=== PATIENT | female | born 1955 | race Caucasian/White ===

== ENCOUNTER 2020-02-24 11:12 | Outpatient (CLI) | payer BC, SELFPAY ==
[2020-02-24 11:34] VITALS: BMI 34.2
--- NOTE | 2020-02-24 11:43 | ECG_ITS ---
NAME OF STUDY: TREADMILL STRESS ECHOCARDIOGRAM INDICATION: Chest Pain Baseline blood pressure of 186/66 mm Hg, heart rate 57 beats per minute and oxygen saturation 97%. EKG showed normal sinus rhythm, normal axis with intraventricular conduction delay. Nonspecific ST-T wave changes in inferolateral leads. The patient exercised for 2 minutes 52 seconds on a standard Yousuf protocol. Patient attained a maximum heart rate of 117 beats per minute(74 % of the maximum predicted heart rate) with a blood pressure at the peak exercise of 249/119 mm Hg and oxygen saturation of 98%. The EKG at the peak exercise revealed sinus tachycardia with horizontal to upsloping 1 and half millimeter-2 mm horizontal to upsloping ST depression in inferolateral leads. Patient did not have any chest pain or any significant arrhythmias with the exercise Test terminated without reaching target heart rate due to patient fatigue and hypertension. No echocardiographic images due to incomplete test. During the recovery phase, there were no new changes. Frequent PVCs in bigeminal pattern were noted in recovery. Blood pressure at the end of the recovery phase was 143/100 mm Hg with a heart rate of 55 beats per minute and oxygen saturation 96%. CONCLUSION: 1. Equivocal EKG response to treadmill exercise given baseline ST-T wave changes. Test terminated without reaching target heart rate due to patient fatigue and hypertension. 2. No exercise-induced chest pain. Frequent PVCs in bigeminal and trigeminal pattern noted in recovery. 3. Poor exercise tolerance, attained a maximum of 4.6 METs. 4. Baseline hypertension with hypertensive response to exercise. 5. Echocardiographic images were not performed as patient did not reach target heart rate. Better blood pressure control along with chemical stress testing is recommended. Electronically Signed On 02-26-2020 15:44:49 CDT by Krystal Garcia M.D. [id number]
[2020-02-24 12:18] VITALS: BP 143/100; PULSE 54
--- NOTE | 2020-02-24 12:23 | PC.NURSE ---
Stress test Pt attempted stress echo. Unable to reach target HR on treadmill d/t fatigue, pt requested treadmill to be stopped. Pt experienced frequent PVC's, bigeminal rhythm with along with htn during activity, BP reaching 240's/100's. EKG normalized with rest along with BP. Pt discharged home and PCP notified of incomplete test along with results.
== END 2020-02-24 11:13 | disposition home or self-care (01) ==
LOC: CDL 11:19
PROVIDERS: PCP Family Medicine; Visit Provider Family Medicine
DX: I10 Essential (primary) hypertension (principal); R94.31 Abnormal electrocardiogram [ECG] [EKG]; R07.9 Chest pain, unspecified
CPT/HCPCS: 93017

== ENCOUNTER 2020-04-19 09:30 | Outpatient (CLI) | payer BC, SELFPAY ==
[2020-04-19 10:03] VITALS: BMI 34.2
--- NOTE | 2020-04-19 10:08 | ECG_ITS ---
[facility] Test Date: 2020-04-19 Pat Name: Manisha Delong Department: Room: Gender: Female Soap Boiler: : 1955 Requested By: Mike Doshi Order Number: [id number] Alea MD: Mike Doshi M.D. Interpretive Statements NAME OF STUDY: LEXISCAN SESTAMIBI STRESS TEST INDICATION: Bigeminal Rhythm NOTE: Please note that this is the electrocardiogram portion of the Lexiscan/Sestamibi stress test. The perfusion scan will be documented separately. DATA: Baseline heart rate was 58 beats per minute. Baseline blood pressure was 203/112 millimeters of mercury. Target heart rate was 158. Maximum heart rate achieved was 100. which was 63 % of the predicted target heart rate. Maximum blood pressure was 268/135 millimeters of mercury. The reason for ending the test was completion of the protocol. The patient did not experience any symptoms. ELECTROCARDIOGRAM: BASELINE: Sinus bradycardia. Normal axis. Interventricular conduction delay, otherwise no ST-T changes suggestive of ischemia noted. No arrhythmia noted. EXERCISE: After Lexiscan injection, no ST-T changes suggestive of ischemic noted. No arrhythmia noted. CONCLUSION: Please note due to baseline abnormality of the EKG specificity and sensitivity of the EKG portion of LexiScan MIBI stress test will be low 1. EKG not suggestive of ischemia 2. Lexiscan injection unremarkable. 3. Perfusion scan will be documented separately. Electronically Signed On 04-21-2020 17:10:51 CDT by Mike Doshi M.D. [id number]
--- NOTE | 2020-04-19 10:10 | NMCV_ITS ---
NM fede perf SPECT r/s* [id number] Manisha Delong Age: 64 Gender: F : 1955 Exam Date: 04/19/2020 10:20 Ordering Phys: Technologist: SANIYA Mora Exam Location: [facility] Indications: Precordial chest pain STRESS TEST Please see separate stress test report in Ephiphany for full findings IMAGE PROTOCOL Rest/Stress 1 Lexiscan Day Radiopharmaceutical Dose (mCi) Administration Site Administered by Rest: Tc-99m 10.7 IV SANIYA Jordan Sestamibi Stress:Tc-99m 32.9 IV SANIYA Mora Sestamimarylin Rest: 19-Apr-2020 60 Discovery 630 Stress: 19-Apr-2020 45 Discovery 630 0.4mg Lexiscan supine position only as patient was unable to lay prone. SPECT RESULTS Technical Quality: Good Raw Data Analysis: Breast attenuation, Soft tissue attenuation Image Corrections: No attenuation or motion correction applied Summed Stress Score: 15 Summed Rest Score: 8 Summed Difference Score: 9 PERFUSION FINDINGS Medium-sized area of fixed perfusion defect noted in basal to mid inferior inferolateral wall surrounded by medium-sized area of severe reversibility suggestive of old myocardial infarction surrounded by medium-sized area of liborio-infarct ischemia in left circumflex territory FUNCTIONAL RESULTS (calculated via Gated SPECT) Stress Image LV EF (%): 59 Stress EDV (mL):120 TID: 0.71 Stress ESV (mL):49 Rest Image LV EF (%): 59 FUNCTIONAL FINDINGS: Basal to distal inferior inferolateral wall hypokinesis IMPRESSIONS Medium-sized area of fixed perfusion defect noted in basal to mid inferior inferolateral wall surrounded by medium-sized area of severe reversibility suggestive of old myocardial infarction surrounded by medium-sized area of liborio-infarct ischemia in left circumflex territory Mike Doshi MD (Electronically Signed) Final Date: 20 April 2020 15:38 S
[2020-04-19] MEDS: regadenoson 0.4 Mg/5 ml Syringe IVP (11:24)
--- NOTE | 2020-04-19 11:24 | SUR.PREOP ---
Patient reports no pain or discomfort prior to the start of the procedure.
[2020-04-19] MEDS: aminophylline 25 mg/mL SDV 10 mL IVP (11:39)
[2020-04-19] MEDS: hyDRALAzine 20 mg/mL INJ 1 mL 10 MG IVP (11:48)
[2020-04-19] MEDS: nitroglycerin 1 gm/inch oint Pkt 1 INCH TOPICAL (11:50)
--- NOTE | 2020-04-19 12:02 | SUR.PHASEII ---
b/p elevation Blood pressure elevated during stress and early recovery phase of the testing. Highest on record 268/123. Patient experiencing dry heaves and vomiting during early phase which contributed to bp response. Stress reversed with Aminophylline, but remained elevated despite symptoms going away. Dr Doshi made aware. Orders as per EHR. Noted and completed at this time. Late recovery Patient stable. HR 82. b/p currenly 173/96 after medication orders. Will recheck. Patient set in the WR at this time. Will reassess bp and HR prior to discharge from [place]. NM aware.
[2020-04-19 12:11] VITALS: BP 173/96; PULSE 82
[2020-04-19 12:51] VITALS: BP 135/67; PULSE 67; RESP 18; O2SAT 97
--- NOTE | 2020-04-19 12:51 | SUR.PHASEII ---
B/P recheck post NM scans and post med admins is 135/67. Asymptomatic at this time. Dr Doshi notified. Verbal orders to dismiss home at this time.
== END 2020-04-19 09:31 | disposition home or self-care (01) ==
LOC: CDL 09:32
PROVIDERS: PCP Family Medicine; Visit Provider Internal Medicine Cardiovascular Disease
DX: I49.9 Cardiac arrhythmia, unspecified (principal); R07.2 Precordial pain
CPT/HCPCS: 78452; 93017; 96374; A9500; J0280; J0360; J2785

== ENCOUNTER → 2020-05-03 10:43 | Outpatient (BNVA) | payer BC, SELFPAY | PROVIDERS: PCP Family Medicine; Visit Provider Internal Medicine Cardiovascular Disease | DX: R94.39 Abnormal result of other cardiovascular function study (principal); R07.2 Precordial pain | CPT/HCPCS: 80048; 85025; 87635 ==

== ENCOUNTER 2020-05-11 08:27 | Observation (INO) | payer BC, SELFPAY ==
[2020-05-11] VITALS (27 sets, daily range): BP systolic 108–196; BP diastolic 58–93; PULSE 50–73; RESP 13–23; TEMP 36.7; O2SAT 92–96; BMI 34.2
[2020-05-11] MEDS: diphenhydrAMINE 50 mg Capsule PO (07:52)
--- NOTE | 2020-05-11 08:30 | XACV_ITS ---
Exam Room: [facility] Ht: 165 cm Wt: 93 kg BSA: 2.11 m2 Gender: Female : 1955 Any Known Allergies: No known allergies Exam Priority: Routine Procedure(s): Procedure Description: Diagnostic procedure Procedure Description: Left ventriculography Procedure Description: Coronary Angiography Diagnostic Cath Status: Elective Diagnostic Findings LM has 0% stenosis. LAD has 0% stenosis. dCIRC: Severe 100% stenosis, HUI: 3 flow. mRCA to dRCA: Severe 80% stenosis, HUI: 2 flow. dRCA to RPAV: Severe 100% stenosis, HUI: 0 flow. dLAD to dLAD collateralization. Coronary angiography shows right dominance. Conclusions There is severe coronary artery disease with two vessel disease. The basal posterior and inferobasal ohara are hypokinetic. Normal left ventricular systolic function. Ejection fraction of 55%. 1. Left main is normal2. LAD has luminal irregularity with moderate size and caliber large vessel. Diagonal-1, diagonal 2 are small to moderate sized vessel without significant stenosis3. Left circumflex artery is nondominant small size and caliber vessel with probable distal groove circumflex occluded chronically4. RCA is subtotally and completely occluded in mid to distal segment, LAD collateral to distal RCA fills it retrogradely. Recommendations 1-Return to inpatient for close monitoring and routine cath care 2-Risk factor modification for secondary prevention 3-Statin and aspirin 81 mg life--long, if tolerated 4-Continue optimal medical management 5-Follow up with Dr. Doshi in four weeks and your primary care in 10 days . Diagnostic RX Recommendation: medical therapy and/or counseling Ventriculography Ejection Fraction: 55.0 % Left Ventriculography Findings: Normal left ventricular ejection fraction with inferior wall motion abnormality estimated ejection fraction 55%. Pressures Phase:Rest AO : 100 mmHg / 57 mmHg ( 73 mmHg ) @ 4:52:00 AM 104 mmHg / 52 mmHg ( 73 mmHg ) @ 4:53:00 AM 107 mmHg / 57 mmHg ( 77 mmHg ) @ 4:57:00 AM 125 mmHg / 51 mmHg ( 75 mmHg ) @ 5:09:00 AM 120 mmHg / 50 mmHg ( 75 mmHg ) @ 5:09:00 AM LV : 103 mmHg / 7 mmHg / @ 5:07:00 AM 132 mmHg / -1 mmHg / @ 5:09:00 AM 125 mmHg / -1 mmHg / @ 5:09:00 AM Valves Phase:DefaultPhase AV : 0.0 mmHg @ 1:26:39 PM AV Mean Gradient: 0.0 mmHg @ 1:26:39 PM Clinical Evaluation EBL: 5mL-10mL Procedural Details Procedure Consent Obtained. Pre-Procedure Time Out. Identified patient by full name and date of as verbalized by the patient/guarantor. Does the consent match the physician's order: Yes. Accurate & Complete Informed Consent: Yes. Inpatient/Outpatient History & Physical on Chart: Yes. If H&P is completed, is and addenduem needed: No; If yes, is the addendum complete: N/A. Visualize and Verify Site with Patient/Guarantor: N/A. Relevant Radiology Images available: Yes. Pre-op teaching completed and patient verbalized understanding. The risks, benefits, and alternatives of sedation and/or procedure were discussed by physician. The patient agrees to continue. Procedure started. Correct patient, site and procedure confirmed by cath team. Current diagnosis: Chest Pain. PERRLA. Strong, equal hand technical advisor bilaterally. Lungs clear x 5 lobes. IV Site on Arrival: 20 gauge in the left anticubital. IV Fluids: 0.9% NaCl at KVO. 0 mL infused prior to labor relations officer. Pre Procedural Pulses: bilateral dorsalis pedis was 1+. Pre Procedural Pulses: bilateral posterior tibial was 1+. Pre Procedural Pulses: bilateral radial was 3+. Oxygen started at 2liters/min via nasal canula. bilateral groins was prepped with chloroprep then draped in the usual sterile fashion. right radial was prepped with chloroprep then draped in the usual sterile fashion. Physician notified. Baseline sample Acquired. HR: 55 BPM. Physician arrived. Equipment: 6F - Radial. ACIST Manifold Kit Model BT 2000. Cardiac Cath Pack. Heparinized Saline (2 units/mL), 1000 mL bag. Physician scrubbed in. Immediate Pre-Procedure Time Out. Correct Patient: Yes; Correct Procedure: Yes; Correct Site: Yes; Correct Patient Position: Yes; Correct Supplies: Yes; Dried Flammable Prep: Yes; Blood Products Available: No;. Lidocaine 1% infiltrated to the right radial. Arterial access obtained. A 5 grenadian TIG catheter in over wire. Hand injection performed. Glidewire inserted. Glidewire out. 5FR TIG catheter removed. TR band placed. Hemostasis obtained. A TR Band was successful obtaining hemostatsis at the Right Radial artery insertion site. Radial site aborted, Physician will obtain access in Groin. Lidocaine 1% infiltrated to the right groin. Og Johnston called with update. Arterial access obtained with micropuncture set. A 5 grenadian JL4 catheter in over wire. Multiple views taken of left coronary artery. Catheter removed over the standard wire. A 5 grenadian JR4 catheter in over wire. Multiple views taken of right coronary artery. Catheter out. A 6 grenadian Angled Pig catheter in over wire. EDP Sample taken: LV 103/7,9; HR: 57 BPM; SpO2: 96%. LV gram performed in [place] @ 10 mL/second for a total of 30 mL. EDP Sample taken: LV 132/-2,6; HR: 49 BPM; SpO2: 97%. Pullback taken: LV 125/-2,7; AO 125/51(75); Mean: 0mmHg, Peak to Peak: 0mmHg, SEP: 5sec/min; HR: 57 BPM; SpO2: 96%. Physician scrubbed out. Sheath(s) sutured into position with 2-0 silk and sterile 4x4's and Op-site applied over the site. No oozing or signs and symptoms of hematoma noted. Arterial sheath flushed and connected to tranducer and pressure bag with heparinized saline. A Suture was successful obtaining hemostatsis at the Right Femoral artery insertion site. Post Procedure: Pulses reassessed and unchanged. PERRLA. Strong, equal hand technical advisor bilaterally. No VTE prophylaxis required. Medication's Wasted: Nitro = 45.5 mg. Medication's Wasted: Other = Versed 1 mg. Medication's Wasted: Heparin = 1000 units. Medication's Wasted: Lidocaine 1% = 6 mL. Total IV fluids: 73 mL. Vital chart was stopped. Contrast type used: Omnipaque 300 mgI/mL, 500 mL bottle. [id number]. Post-op diagnosis: Chest Pain. Complications: None. Estimated blood loss: 5mL-10mL. Procedure completed. Patient transferred by bed to 1st floor. [facility] Clinical Fraility Score: 3: Managing Well. Kettle Room Helper Indications: Worsening Angina. Chest Pain Symptom Assessment: Typical Angina Symptoms. Cardiovascular Instability: No. Site: Right Radial artery Sheath Size: 6 Fr Hemostasis Method: TR Band Hemostasis Success: Successful Site: Right Femoral artery Sheath Size: 6 Fr Hemostasis Method: Suture Hemostasis Success: Successful Procedure Medications Start: 9:09 AM Stop: 9:09 AM Medication: Versed Amount: 1 mg Route: I.V. Start: 9:09 AM Stop: 9:09 AM Medication: Fentanyl Amount: 50 mcg Route: I.V. Start: 9:14 AM Stop: 9:14 AM Medication: Versed Amount: 1 mg Route: I.V. Start: 9:14 AM Stop: 9:14 AM Medication: Fentanyl Amount: 50 mcg Route: I.V. Start: 9:17 AM Stop: 9:17 AM Medication: Nitrogylcerin Amount: 50 mcg Start: 9:21 AM Stop: 9:21 AM Medication: Nitrogylcerin Amount: 200 mcg Route: I.A. Start: 9:22 AM Stop: 9: AM Medication: Versed Amount: 1 mg Route: I.V. Start: 9:27 AM Stop: 9:27 AM Medication: Nitrogylcerin Amount: 400 mcg Route: I.A. Start: 9:43 AM Stop: 9:43 AM Medication: Versed Amount: 1 mg Route: I.V. Start: 9:58 AM Stop: 9:58 AM Medication: Versed Amount: 1 mg Route: I.V. I, the attending physician, have reviewed and verified all procedure medications. Yes, all medications given per verbal order History/Risk Factors Hypertension: Yes Dyslipidemia: No Peripheral Arterial Disease (PAD): No Myocardial Infarction (FL): No Obesity: No Renal Disease: No Tobacco Use: Former Prior Interventions PCI: No CABG: No Valve Surgery: No Report Signatures Finalized by:Mike Doshi MD on 05/29/2020 3:59:03 PM
--- NOTE | 2020-05-11 08:59 | PM.HP ---
Providers/Chief Complaint Admitting Physician: Mike Doshi MD Primary Care Provider: Ck Lazaro MD Chief Complaint: chest pain abnormal stess test History of Present Illness 64-year-old female past medical history significant for family history of coronary artery disease, history of smoking hypertension hyperlipidemia for worsening of chest pain and shortness of breath thought to be anginal-like symptoms underwent treadmill stress test because of very high systolic blood pressure and inability to complete exercise stress test due to frequent and bigeminal ventricular rhythm test was aborted. Later patient underwent Lexiscan MIBI stress test which showed medium-sized area of fixed perfusion defect noted in basal to mid inferior inferolateral wall surrounded by medium-sized area of severe reversibility suggestive of MO surrounded by medium-sized area of liborio-infarct ischemia in the dominant RCA or circumflex territory. It is the reason patient is here for left heart cath and PCI if indicated. Patient has been explained all risk benefit and alternative for the procedure. She understand the risk of stroke TIA bleeding emergent cardiac bypass. She would like to proceed with it. Medications/Allergies Home Medications Medication Instructions Recorded Confirmed Last Taken Type hydrochlorothiazide 25 mg tablet 25 mg PO DAILY 03/29/20 05/10/20 05/11/20 06:20 History lisinopril 40 mg tablet 40 mg PO DAILY 03/29/20 05/10/20 05/11/20 06:20 History metoprolol succinate 25 mg 25 mg PO DAILY 03/29/20 05/10/20 05/11/20 06:20 History tablet,extended release 24 hr isosorbide mononitrate 30 mg 15 mg PO BID #90 tab 04/04/20 05/10/20 05/11/20 06:20 Rx tablet,extended release 24 hr Allergies Allergy/AdvReac Type Severity Reaction Status Date / Time No Known Allergies Allergy Verified 05/11/20 08:13 PFSH Acute PFSH: Medical History Bigeminal rhythm Chest pain HTN (hypertension) Family History Father CAD (coronary artery disease) Diabetes Hyperlipidemia Mother CAD (coronary artery disease) Grandmother Cancer Sister Hypertension Denies family history of Clotting disorder Dementia Psychiatric illness Chronic kidney disease (CKD) Suicide Anesthesia complication Bleeding disorder Family history of premature coronary artery disease Lung disease Stroke Social History Smoking and tobacco status: former smoker Alcohol intake: never Vitals/I&O/Wt Last Vital Signs Temp 98.0 F 05/11/20 08:11 Pulse 62 05/11/20 08:11 Resp 14 05/11/20 08:11 BP 196/73 05/11/20 08:11 Weight last 48 hrs Weight 206 lb Physical Exam Narrative: EXAM NARRATIVE: GENERAL: Patient is alert, awake and oriented x3. NECK: No jugular vein distension. HEENT: No cyanosis. No icterus. No pallor. HEART: Regular S1 and S2. No murmur, rub or gallop. LUNGS: Clear to auscultate bilaterally. ABDOMEN: Soft, nontender and nondistended. Positive bowel sounds. No guarding, rebound or tenderness. CENTRAL NERVOUS SYSTEM: Grossly nonfocal. EXTREMITIES: Lower extremities without edema bilaterally. A&P Assessment and plan (1) Abnormal stress test: Patient is here for left heart cath with history of worsening of angina, arrhythmia and abnormal stress test. She understand all risk benefit and alternative for the procedure explained by myself. She would like to proceed with it. Status: Acute (2) HTN (hypertension): Patient is hypertensive I will give her IV hydralazine and hopefully with analgesia blood pressure will be under control otherwise we can use nitro drip. Status: Acute Qualifiers: Hypertension type: essential hypertension Qualified Code(s): I10 - Essential (primary) hypertension (3) Bigeminal rhythm: We will rule out ischemia with left heart cath. Further plan will be advised as per progress the patient Status: Acute Attestations Medical Necessity Statement*: I am not expecting her stay to cross more than 1 midnight. Coding Level of Care Code Established Pt Acute Nitric Acid Concentrator Operator for Chg Fwd Patient Type Established History Expanded Problem Focused Exam Expanded Problem Focused Medical Decision Making Moderate Complexity Diagnoses Abnormal stress test R94.39 HTN (hypertension) I10 Hypertension type: essential hypertension Bigeminal rhythm I49.9
--- NOTE | 2020-05-11 09:05 | W.PM.OPSUD ---
Surgery/Procedure H&P Update DATE OF PROCEDURE: May 11, 2020 DATE H&P PERFORMED: 05/11/20 H&P UPDATE INFORMATION: I have examined patient prior to procedure, No changes to prior documentation and H&P to be scanned into chart PREOP DIAGNOSIS: Angina/abnormal stress test/arrhythmia PLANNED PROCEDURE: Operation Date: 05/11/20 08:30 Proposed Procedures p Cardiac Catheterization left(Left) - Mike Doshi MD PATIENT REASSESSED PRIOR TO SEDATION, WITH NO CHANGE NOTED: Yes PHYSICAL EXAM: alert, oriented x 3 and clear to auscultation bilaterally AIRWAY EVAL/ANESTHESIA PLAN: normal airway, ASA II, Risks, benefits & alternatives of sedation and/or procedure discussed and Patient agrees to continue as planned
--- NOTE | 2020-05-11 10:45 | PC.NURSE ---
Patient arrived to floor from orthodontic lab technician at 1028. 2 nurse verification of right wrist and groin. Sites asymptomatic. TR band applied to wrist with 19 ml of air instilled. 3 ml of air removed upon arriving to the floor. No oozing noted. Pressure bag to right groin. neurovascular assessments WNL. Patient A&O resting in bed. Patient oriented to room and call light. Patient educated on activity restrictions.
[2020-05-11] MEDS: sodium chloride 0.9% 1,000 ML 100 ML IV (10:46)
--- NOTE | 2020-05-11 10:59 | PC.CHAP ---
Pastoral Care Encounter/Spiritual Assessment Type of Contact [] Declined supervisor microwave visit [] Patient/Family/Request visit [] Outpatient visit [] Follow-up visit [] Physician referral [] Code/Alert [x] Routine visit [] Staff referral [] Actively dying [] Patient sleeping [] Family support [] [] Out of room [] Palliative care [] [] Receiving care in room [] Pre-surgical visit [] Trauma [] Long length of stay [] ICU visit [] Other: Relational/Emotional Strength [] Patient feels connected with others/family/visitors/staff [] Distress [] Loneliness/isolation [] Abandonment Spirituality of Patient [] Person of Treva [] Attends Mosque of their Treva [] Believes in Prayer [] Reads Bible or Cheondoism materials [] There are Spiritual issues to be addressed Cupboard Builder Interventions [x] Prayer [x] Active listening [x] Non-anxious presence [x] Spiritual/emotional support [] Crisis/trauma care [] Spiritual counseling [] Bereavement support [] Provided bereavement packet [] Provided Bible/devotional materials [] Provided toy/stuffed animal, coloring book to patient or family member [] Provided Communion [] Anointing/[place] [] Salvation [x] Completed spiritual assessment [] Other: Impact on Illness or Injury [] Angry [] Fearful [] Anxious [] Often cries [] Exhaustion [] Unable to work [] Unable to attend judaism [] Unable to walk/stand [] Unable to read [] Unable to drive [] Unable to eat/drink [] Unable to sleep [] Unable to be with family [] Patient intubated [] Other: Summary Patient just brought to room- resting well Time spent with patient 5 min
--- NOTE | 2020-05-11 11:45 | PC.NURSE ---
Sheath pulled Sheath pulled at 1122 per protocol. Direct pressure held for 20 minutes until hemostasis was achieved. Patient tolerated well. No hematoma noted. Dressing applied, CDI. Nurse to continue to monitor.
[2020-05-11 12:51] LABS: Partial Thromboplastin Time 28.3 SECONDS (23.9-36.7)
--- NOTE | 2020-05-11 13:30 | PC.NURSE ---
TR Band Removal Nurse called to bedside by nurse's aide. Patient had removed TR Band by herself with 13 ml of air remaining. Site had already achieved hemostasis. Site cleansed, dressing applied. No hematoma or oozing noted. Patient re-educated on the purpose of the TR band and the complications that could have resulted from the patient taking the band off herself. Dr. Doshi notified of event. No new orders received. Nurse to continue to monitor.
[2020-05-11] MEDS: isosorbide mononitrate ER 30 mg Tablet 15 MG PO (17:12)
--- NOTE | 2020-05-11 18:45 | PC.NURSE ---
Discharge instructions given per the physician's orders. Patient verbalized understanding of post angiogram care instructions and medication informations. Patient did not have any further questions. IV has been removed. Patient dressed self. Patient's granddaughter is driving the patient home in a private vehicle. No further needs identified.
--- NOTE | 2020-05-13 16:48 | PC.RESP ---
PATIENT DOES NOT HAVE A QUALIFYING HX OF LUNG DISEASE AT THIS TIME AND DOES NOT QUALIFY FOR PULMONARY REHAB.
== END 2020-05-11 18:48 | disposition home or self-care (01) ==
LOC: CSU 08:28
PROVIDERS: Admitting Provider Internal Medicine Cardiovascular Disease; PCP Family Medicine; Visit Provider Internal Medicine Cardiovascular Disease
DX: I25.10 Atherosclerotic heart disease of native coronary artery without angina pectoris (principal); R94.39 Abnormal result of other cardiovascular function study; I10 Essential (primary) hypertension; I49.9 Cardiac arrhythmia, unspecified; Z82.49 Family history of ischemic heart disease and other diseases of the circulatory system; Z87.891 Personal history of nicotine dependence; E78.5 Hyperlipidemia, unspecified
CPT/HCPCS: 12345; 36415; 85730; 93452; 96360; 96361; C1769; C1887; C1894; G0378; J1644; J2250; J3010; J3490; J7030; Q0163; Q9967

== ENCOUNTER → 2020-05-23 12:05 | Outpatient (BNVA) | payer BC, SELFPAY | PROVIDERS: PCP Family Medicine; Visit Provider Nurse Practitioner Family | DX: R07.2 Precordial pain (principal) | CPT/HCPCS: 80048 ==

== ENCOUNTER → 2022-07-24 15:11 | Outpatient (BNVA) | payer MEDICARE, SELFPAY | PROVIDERS: PCP Family Medicine; Visit Provider Internal Medicine Cardiovascular Disease | DX: I25.118 Atherosclerotic heart disease of native coronary artery with other forms of angina pectoris (principal); I10 Essential (primary) hypertension; E11.9 Type 2 diabetes mellitus without complications; Z79.84 Long term (current) use of oral hypoglycemic drugs; Z87.891 Personal history of nicotine dependence | CPT/HCPCS: 99214 ==

== ENCOUNTER 2022-07-31 14:20 | Oncology outpatient (recurring) (ONCR) | payer MEDICARE, SELFPAY ==
[2022-07-31 16:21] LABS: Basophils # 0.1 10^3/uL (0.0-0.1); Basophils % 0.7 %; Eosinophils # 0.2 10^3/uL (0.0-0.8); Eosinophils % 3.2 %; Hemoglobin 12.3 g/dL (11.5-15.3); Lymphocytes # 1.2 10^3/uL (0.8-4.8); Lymphocytes % 16.4 %; Mean Corpuscular HGB Conc 33.2 g/dL (30.0-36.0); Mean Corpuscular Hemoglobin 32.5 pg (28.0-34.0); Mean Corpuscular Volume 97.6 fl (81-99); Monocytes # 0.7 10^3/uL (0.2-0.9); Monocytes % 9.6 %; Neutrophils # 5.16 10^3/uL (1.8-7.7); Neutrophils % 69.8 %; Nucleated Red Blood Cells % 0 %; Platelet Count 305 10^3/cmm (130-400); Red Blood Count 3.79 10^6/uL (4.1-5.3); Red Cell Distribution Width 13.4 % (12.1-15.1); White Blood Count 7.4 10^3/uL (4.0-10.0)
[2022-07-31 16:24] LABS: LAB Peripheral Smear Sent for Review
[2022-07-31 16:38] LABS: Albumin Level 4.1 g/dL (3.5-5.2); Alkaline Phosphatase 63 U/L (35-105); Anion Gap 15.3 (5-19); Aspartate Amino Transferase 40 U/L (0-32); Blood Urea Nitrogen 21 mg/dL (8-23); Calcium 9.8 mg/dL (8.5-10.5); Carbon Dioxide 27 mmol/L (22-29); Chloride 98 mmol/L (98-107); Globulin 3.2 g/dL (1.3-4.6); Glomerular Filtration Rate 45.1 mL/min (90-130); Glucose 95 mg/dL (65-115); Lactate Dehydrogenase 179 U/L (135-214); Osmolality Calculated 285 mOsm/kg (285-295); Potassium 4.3 mmol/L (3.5-5.1); Sodium 136 mmol/L (136-145); Total Bilirubin 0.5 mg/dL (0.15-1.2); Total Protein 7.3 g/dL (6.6-8.7)
[2022-07-31 16:49] LABS: Alanine Aminotransferase 31 U/L (0-33)
== END 2022-08-20 23:59 | disposition home or self-care (01) ==
PROVIDERS: PCP Family Medicine; Visit Provider Internal Medicine Medical Oncology
DX: D64.9 Anemia, unspecified (principal)
CPT/HCPCS: 80053; 83615; 85025

== ENCOUNTER 2022-08-17 14:09 | Outpatient (CLI) | payer MEDICARE, SELFPAY ==
[2022-08-17] MEDS: iohexol 350 mg/mL 100 mL Btl IV (14:40)
[2022-08-17] MEDS: iohexol 350 mg/mL 100 mL Btl PO (14:41)
--- NOTE | 2022-08-17 15:30 | CT_ITS ---
WS: [id number] CT CHEST, ABDOMEN AND PELVIS WITH CONTRAST HISTORY: elevated liver enzymes, shortness of breath, anemia TECHNIQUE: Contiguous 5 mm axial imaging performed through the chest, abdomen and pelvis with IV cont rast, oral contrast has been provided. Coronal and sagittal reformats chest. Coronal and sagittal ref ormats through the abdomen and pelvis. All CT scans at [facility] use at least one of these d ose optimization techniques: automated exposure control; mA and/or kV adjustment per patient size (in cludes targeted exams where dose is matched to clinical indication); or iterative reconstruction. CONTRAST: Omnipaque 350; 95 mL IV. DLP: 1718.73 mGy.cm COMPARISON: None available. Chest CT: No pulmonary mass or nodule. Lungs are well-aerated. Mild atherosclerosis aorta. Normal siz e pulmonary artery. No pericardial or pleural effusion. Small hiatal hernia. No adenopathy. Calcifica tion at the origin of the great vessels. No axillary adenopathy. Chest wall is negative. Abdomen CT: Mild hepatomegaly. No liver lesions. Portal vein is normally enhancing. Prior cholecystec junior. Normal spleen and pancreas. No adrenal mass. Mild atherosclerosis aorta. Mild plaque in the pro ximal great vessels and renal arteries. Renal mass and no obstruction. Too small to characterize hy podensity lower pole RIGHT kidney. Stomach is well distended with oral contrast. No small bowel obstruction. Mild diffuse fecal retentio n. No obstructing lesion. No free fluid or adenopathy. Pelvic CT: Uterus is retroverted. No free fluid or adenopathy. Mild curvature lumbar spine to the LEFT. Thoracolumbar scoliosis. CT/CT chest abd pel w con* IMPRESSION: 1. Mild hepatomegaly with no liver lesions or bile duct dilatation. 2. Normal size spleen. 3. No metastatic nodules within the lungs and no adenopathy. 4. Atherosclerosis aorta. 5. Prior cholecystectomy. 6. No GI tract obstruction.
== END 2022-08-17 14:10 | disposition home or self-care (01) ==
LOC: RAD 14:09
PROVIDERS: PCP Family Medicine; Visit Provider Internal Medicine Medical Oncology
DX: R06.02 Shortness of breath (principal); R74.8 Abnormal levels of other serum enzymes; R16.0 Hepatomegaly, not elsewhere classified; D64.9 Anemia, unspecified; I70.0 Atherosclerosis of aorta; Z90.49 Acquired absence of other specified parts of digestive tract
CPT/HCPCS: 71260; 74177

== ENCOUNTER → 2023-01-29 14:22 | Outpatient (BNVA) | payer MEDICARE, SELFPAY | PROVIDERS: PCP Family Medicine; Visit Provider Nurse Practitioner Family | DX: I25.118 Atherosclerotic heart disease of native coronary artery with other forms of angina pectoris (principal); I10 Essential (primary) hypertension; Z87.891 Personal history of nicotine dependence; Z79.82 Long term (current) use of aspirin | CPT/HCPCS: 99214 ==

== ENCOUNTER → 2023-07-30 13:33 | Outpatient (BNVA) | payer MEDICARE, SELFPAY | PROVIDERS: PCP Family Medicine; Visit Provider Internal Medicine Cardiovascular Disease | DX: I25.118 Atherosclerotic heart disease of native coronary artery with other forms of angina pectoris (principal); I10 Essential (primary) hypertension; Z87.891 Personal history of nicotine dependence; E11.9 Type 2 diabetes mellitus without complications; Z79.84 Long term (current) use of oral hypoglycemic drugs | CPT/HCPCS: 99214 ==

== ENCOUNTER → 2024-02-04 10:59 | Outpatient (BNVA) | payer MEDICARE, SELFPAY | PROVIDERS: PCP Family Medicine; Visit Provider Nurse Practitioner Family | DX: I25.118 Atherosclerotic heart disease of native coronary artery with other forms of angina pectoris (principal); I10 Essential (primary) hypertension; Z87.891 Personal history of nicotine dependence | CPT/HCPCS: 99214 ==

== ENCOUNTER → 2024-07-07 10:17 | Outpatient (BNVA) | payer MEDICARE, SELFPAY | PROVIDERS: PCP Family Medicine; Visit Provider Internal Medicine | DX: I25.118 Atherosclerotic heart disease of native coronary artery with other forms of angina pectoris (principal); I10 Essential (primary) hypertension; E11.9 Type 2 diabetes mellitus without complications; E66.9 Obesity, unspecified; Z68.30 Body mass index [BMI] 30.0-30.9, adult; Z87.891 Personal history of nicotine dependence | CPT/HCPCS: 99214 ==

== ENCOUNTER → 2025-05-04 15:09 | Outpatient (BNVA) | payer MEDICARE, SELFPAY | PROVIDERS: PCP Family Medicine; Visit Provider Internal Medicine | DX: R06.02 Shortness of breath (principal); I25.10 Atherosclerotic heart disease of native coronary artery without angina pectoris; I10 Essential (primary) hypertension; E11.9 Type 2 diabetes mellitus without complications; Z79.84 Long term (current) use of oral hypoglycemic drugs; E66.9 Obesity, unspecified; Z68.38 Body mass index [BMI] 38.0-38.9, adult; Z79.82 Long term (current) use of aspirin; Z87.891 Personal history of nicotine dependence | CPT/HCPCS: 99214 ==

== ENCOUNTER 2025-06-04 12:34 | Outpatient (CLI) | payer MEDICARE, SELFPAY ==
--- NOTE | 2025-06-04 12:45 | USCV_ITS ---
Manisha Delong Age: 69 Gender: F : 1955 Exam Date: 06/04/2025 13:04 Ordering Phys: Seven Lee M.D ([email or web address]) Technologist: [place] Exam Location: [facility] [place] Indication: sob BP: 109 / 71 HR: 66 Rhythm: Sinus Technical Quality: Adequate MEASUREMENTS (Male / Female) Normal Values 2D ECHO LV Diastolic Diameter PLAX 4.4 cm 4.2 - 5.9 / 3.9 - 5.3 cm IVS Diastolic Thickness 1.0 cm 0.6 - 1.0 / 0.6 - 0.9 cm IVS Systolic Thickness 1.3 cm LVPW Diastolic Thickness 1.0 cm 0.6 - 1.0 / 0.6 - 0.9 cm LVPW Systolic Thickness 1.6 cm LVOT Diameter 2.0 cm LV Ejection Fraction 2D Teich 56.9 % LV Ejection Fraction MOD 4C 65.4 % LV Ejection Fraction MOD 2C 58.9 % LV Ejection Fraction 2C AL 62.0 % LA Diameter 4.1 cm RA Systolic Volume 4C AL 32.9 ml RA Systolic Volume 4C MOD 32.1 ml LA Sys Volume AL 58.1 cm cubed LA Sys Volume Index AL 25.9 cm cubed/m squared Aorta at Sinotubular Diameter 1.9 cm IVC Diameter 1.5 cm M-MODE LA Ao Ratio MM 1.6 AV Cusp Separation MM 1.6 cm DOPPLER LVOT Peak Velocity 115.0 cm/s MV Peak Velocity 162.0 cm/s MV Area PHT 2.9 cm squared Mitral E to A Ratio 0.8 TV Peak Velocity 257.5 cm/s TR Peak Velocity 306.0 cm/s TR Peak Gradient 37.5 mmHg TR Mean Velocity 268.0 cm/s TR Mean Gradient 29.8 mmHg TR Velocity Time Integral 78.5 cm PV Peak Velocity 136.0 cm/s RV Ejection Time 0.3 s FINDINGS Left Ventricle Normal left ventricular size, systolic function and wall thickness, with no regional wall motion abnormalities. Normal left ventricular size and systolic function, EF 60-65%. Grade 1 diastolic dysfunction Right Ventricle Normal right ventricular size and systolic function. Right Atrium Normal right atrial size. Left Atrium Normal left atrial size. Mitral Valve Moderate mitral annular calcification. Mild mitral regurgitation Aortic Valve Thickened aortic valve. No aortic valve stenosis. Mild aortic regurgitation Tricuspid Valve Insufficient TR jet to calculate RVSP Pulmonic Valve Not well visualized Pericardium Normal Aorta Normal in size IVC Appears to be normal CONCLUSIONS LV systolic function is normal with EF of 60-65% Grade 1 diastolic dysfunction Mild mitral regurgitation Mild aortic regurgitation Seven Lee MD (Electronically Signed) Final Date: 06 June 2025 15:46 S
== END 2025-06-04 12:35 | disposition home or self-care (01) ==
LOC: RAD 12:38
PROVIDERS: PCP Family Medicine; Visit Provider Internal Medicine
DX: R06.02 Shortness of breath (principal); I08.0 Rheumatic disorders of both mitral and aortic valves
CPT/HCPCS: 93306